=== PATIENT | male | born 1995 | race Caucasian/White ===

== ENCOUNTER 2019-03-14 23:55 | Emergency (ER) | payer MEDICAID, OTHER ==
[~2019-03-14] VITALS: Ht 177.8 cm; Wt 85.0 kg
[~2019-03-14 23:55] MED LIST: PRED10TA PO
[2019-03-15 00:04] VITALS: BP 139/81
== END 2019-03-15 01:52 | disposition left against medical advice (07) ==
LOC: ER 23:56
DX: S90.01XA Contusion of right ankle, initial encounter (principal); Z53.21 Procedure and treatment not carried out due to patient leaving prior to being seen by health care provider; Y04.0XXA Assault by unarmed brawl or fight, initial encounter; Y93.89 Activity, other specified; Y92.89 Other specified places as the place of occurrence of the external cause; Y99.8 Other external cause status

== ENCOUNTER 2019-05-05 16:46 | Emergency (ER) | payer MEDICAID, OTHER ==
[~2019-05-05] VITALS: Ht 177.8 cm; Wt 79.0 kg
[2019-05-05 16:48] VITALS: BP 151/64
== END 2019-05-05 17:18 ==
LOC: ER 16:47
DX: Z00.00 Encounter for general adult medical examination without abnormal findings (principal); F17.200 Nicotine dependence, unspecified, uncomplicated; F15.90 Other stimulant use, unspecified, uncomplicated; Z98.890 Other specified postprocedural states
CPT/HCPCS: 99283